=== PATIENT | male | born 1940 | race Caucasian/White ===

== ENCOUNTER 2016-11-27 08:20 | Outpatient (CLI) | payer MEDICARE, BC ==
[2016-11-27 09:01] LABS: Hemoglobin A1c 7.2 % (4.0-6.0)
[2016-11-27 09:34] LABS: ALT (SGPT) 29 U/L (0-55); AST (SGOT) 24 U/L (5-34); Albumin 4.2 g/dL (3.4-4.8); Alkaline Phosphatase 65 U/L (40-150); Anion Gap 12 mmol/L (10-20); BUN (Urea Nitrogen) 21 mg/dL (8.4-25.7); Bilirubin, Total 0.8 mg/dL (0.2-1.2); Calc. Creatinine Clearance 0 mL/min (70-130); Calcium 9.3 mg/dL (7.8-10.44); Carbon Dioxide 28 mmol/L (23-31); Chloride 109 mmol/L (98-107); Estimated GFR-MDRD 53; Globulin 3.2 g/dL (2.4-3.5); Glucose 207 mg/dL (83-110); Potassium 4.9 mmol/L (3.5-5.1); Protein, Total 7.4 g/dL (5.8-8.1); Sodium 144 mmol/L (136-145)
== END 2016-11-27 08:21 | disposition home or self-care (01) ==
LOC: BURLAB 08:20
PROVIDERS: ATTEND Internal Medicine Endocrinology, Diabetes & Metabolism
DX: E78.5 Hyperlipidemia, unspecified (principal); E11.51 Type 2 diabetes mellitus with diabetic peripheral angiopathy without gangrene; I10 Essential (primary) hypertension
CPT/HCPCS: 36415; 80053; 83036

== ENCOUNTER 2017-02-20 08:37 | Outpatient (CLI) | payer MEDICARE, BC ==
[2017-02-20 08:51] LABS: #Eosinphils 0.1 thou/uL (0.0-0.7); #Lymphocytes 1.5 thou/uL (1.20-3.40); #Monocytes 0.5 thou/uL (0.11-0.59); #Neutrophils 3.6 thou/uL (1.40-6.50); %Basophils 0.6 % (0.0-1.0); %Eosinophils 2.5 % (0.0-10.0); %Lymphocytes 26.4 % (21.0-51.0); %Monocytes 8.6 % (0.0-10.0); %Neutrophils 61.9 % (42.0-75.0); Hemoglobin 14.4 g/dL (14.0-18.0); Mean Corpuscular HGB CONC 34.8 g/dL (32.0-36.0); Mean Corpuscular Hemoglobin 32.5 pg (27.0-31.0); Mean Corpuscular Volume 93.2 fl (80.0-94.0); Mean Platelet Volume 8.2 fL (7.4-10.4); Platelet Count 176 thou/uL (130-400); RBC Distribution Width 12.9 % (11.5-14.5); Red Blood Cell (RBC) Count 4.44 mill/uL (4.70-6.10); White Blood Cell (WBC) Count 5.8 thou/uL (4.8-10.8)
[2017-02-20 09:13] LABS: Hemoglobin A1c 7.9 % (4.0-6.0)
[2017-02-20 09:22] LABS: ALT (SGPT) 34 U/L (8-55); AST (SGOT) 24 U/L (5-34); Albumin 4.1 g/dL (3.4-4.8); Alkaline Phosphatase 56 U/L (40-150); Anion Gap 15 mmol/L (10-20); BUN (Urea Nitrogen) 19 mg/dL (8.4-25.7); Bilirubin, Total 0.9 mg/dL (0.2-1.2); Calc. Creatinine Clearance 0 mL/min (70-130); Calcium 9.2 mg/dL (7.8-10.44); Carbon Dioxide 25 mmol/L (23-31); Cardiac Risk 4.2 (Less than 4.5); Chloride 108 mmol/L (98-107); Cholesterol 146 mg/dl (< 200 Desired); Estimated GFR-MDRD 58; Glucose 146 mg/dL (83-110); HDL Cholesterol 35 mg/dL (>60 Neg Risk); LDL Cholesterol, Calculated 82 mg/dL; Potassium 4.5 mmol/L (3.5-5.1); Protein, Total 7.1 g/dL (5.8-8.1); Sodium 143 mmol/L (136-145); Triglycerides 143 mg/dL (Less than 150)
== END 2017-02-20 08:38 | disposition home or self-care (01) ==
LOC: BURLAB 08:37
PROVIDERS: ATTEND Internal Medicine Endocrinology, Diabetes & Metabolism
DX: E11.51 Type 2 diabetes mellitus with diabetic peripheral angiopathy without gangrene (principal); I10 Essential (primary) hypertension; E78.5 Hyperlipidemia, unspecified; Z79.899 Other long term (current) drug therapy
CPT/HCPCS: 36415; 80053; 80061; 83036; 85025

== ENCOUNTER 2017-05-26 08:36 | Outpatient (CLI) | payer MEDICARE, BC ==
[2017-05-26 09:08] LABS: Hemoglobin A1c 9.6 % (4.0-6.0)
[2017-05-26 10:08] LABS: ALT (SGPT) 33 U/L (8-55); AST (SGOT) 22 U/L (5-34); Albumin 4.1 g/dL (3.4-4.8); Alkaline Phosphatase 65 U/L (40-150); Anion Gap 13 mmol/L (10-20); BUN (Urea Nitrogen) 20 mg/dL (8.4-25.7); Bilirubin, Total 0.6 mg/dL (0.2-1.2); Calc. Creatinine Clearance 0 mL/min (70-130); Carbon Dioxide 27 mmol/L (23-31); Chloride 105 mmol/L (98-107); Estimated GFR-MDRD 52; Globulin 3.4 g/dL (2.4-3.5); Glucose 327 mg/dL (83-110); Potassium 4.5 mmol/L (3.5-5.1); Protein, Total 7.5 g/dL (5.8-8.1); Sodium 140 mmol/L (136-145)
[2017-05-26 17:22] LABS: Creatinine, Urine 155.98 mg/dL (63-166); Microalbumin Urine 4.9 mg/dL (0.5-50.0); Microalbumin/Creat Ratio 31.4 mg/g (Less than 30)
== END 2017-05-26 08:37 | disposition home or self-care (01) ==
LOC: BURLAB 08:36
PROVIDERS: ATTEND Internal Medicine Endocrinology, Diabetes & Metabolism
DX: E11.00 Type 2 diabetes mellitus with hyperosmolarity without nonketotic hyperglycemic-hyperosmolar coma (NKHHC) (principal); E78.5 Hyperlipidemia, unspecified; I10 Essential (primary) hypertension; Z79.899 Other long term (current) drug therapy
CPT/HCPCS: 36415; 80053; 82043; 83036; 84443

== ENCOUNTER 2025-07-01 09:43 | Observation (INO) | payer MEDICARE ==
[2025-07-01 10:34] LABS: #Basophils 0.1 thou/uL (0.0-0.2); #Eosinophils 0.1 thou/uL (0.0-0.7); #Lymphocytes 1.9 thou/uL (1.20-3.40); #Monocytes 0.7 thou/uL (0.11-0.59); #Neutrophils 7.3 thou/uL (1.40-6.50); %Basophils 1.4 % (0.0-1.0); %Eosinophils 1.1 % (0.0-10.0); %Lymphocytes 18.9 % (21.0-51.0); %Monocytes 6.9 % (0.0-10.0); %Neutrophils 71.8 % (42.0-75.0); ALT (SGPT) 17 U/L (Less than 45); AST (SGOT) 21 U/L (11-34); Albumin 4.1 g/dL (3.1-4.5); Alkaline Phosphatase 62 U/L (40-110); Anion Gap 19 mmol/L (10-20); BUN (Urea Nitrogen) 29 mg/dL (8.4-25.7); Bilirubin, Total 0.9 mg/dL (0.3-1.2); Calc. Creatinine Clearance 0 mL/min (70-130); Calcium 9.9 mg/dL (7.8-10.44); Carbon Dioxide 14 mmol/L (23-31); Chloride 106 mmol/L (98-107); Globulin 3.8 g/dL (2.4-3.5); Glucose 239 mg/dL (83-110); Hematocrit 38.5 % (42.0-52.0); Hemoglobin 14.1 g/dL (14.0-18.0); Lipase 27 U/L (8-78); Magnesium 1.9 mg/dL (1.6-2.6); Mean Corpuscular Hemoglobin 30.0 pg (27.0-31.0); Mean Corpuscular Volume 81.9 fl (78.0-98.0); Platelet Count 256 10x3/uL (130-400); Potassium 4.8 mmol/L (3.5-5.1); Red Blood Cell (RBC) Count 4.70 mill/uL (4.70-6.10); Sodium 134 mmol/L (136-145); White Blood Cell (WBC) Count 10.2 10x3/uL (4.8-10.8)
[2025-07-01 10:37] LABS: Troponin I 0.031 ng/mL (< 0.028)
[2025-07-01] MEDS ORDERED: Acetaminophen 325 MG TAB PO PRN (14:15)
[2025-07-01 14:37] LABS: Troponin I 0.026 ng/mL (< 0.028)
[2025-07-01] MEDS: Lidocaine Viscous Sol 2% 15 ml UD Cup ONE (15:16)
[2025-07-01] MEDS: Mag-Al Plus 1200/1200/120 MG (30 mL) UDCUP ONE (15:16)
[2025-07-01] MEDS ORDERED: Glucagon 1 MG/ML KIT IM PRN (15:38)
[2025-07-01] MEDS ORDERED: Dextrose 50% Abboject 50 ML SYRINGE SLOW IVP PRN (15:38)
[2025-07-02 05:03] LABS: Anion Gap 14 mmol/L (10-20); BUN (Urea Nitrogen) 26 mg/dL (8.4-25.7); Calc. Creatinine Clearance 49 mL/min (70-130); Calcium 9.0 mg/dL (7.8-10.44); Carbon Dioxide 18 mmol/L (23-31); Chloride 112 mmol/L (98-107); Glucose 92 mg/dL (83-110); Potassium 4.3 mmol/L (3.5-5.1); Sodium 140 mmol/L (136-145)
[2025-07-02 05:07] LABS: Hematocrit 33.3 % (42.0-52.0); Hemoglobin 12.2 g/dL (14.0-18.0); MDiff Complete? YES; Mean Corpuscular Hemoglobin 30.3 pg (27.0-31.0); Mean Corpuscular Volume 82.6 fl (78.0-98.0); Platelet Adequacy Comment Appears Adequate; Platelet Count 169 10x3/uL (130-400); Red Blood Cell (RBC) Count 4.03 mill/uL (4.70-6.10); White Blood Cell (WBC) Count 5.7 10x3/uL (4.8-10.8)
[2025-07-02 06:08] VITALS: BMI 24.9
[2025-07-02] MEDS: Calcium Carbonate 500 MG ChewTAB PO PRN (09:12)
[2025-07-02] MEDS: Lisinopril 5 MG TAB PO SCH (09:14)
[2025-07-02] MEDS: Magnesium Oxide 400 MG TAB PO SCH (09:14)
[2025-07-02] MEDS: Aspirin 81 mg Enteric Coated Tablet PO SCH (09:14)
[2025-07-02] MEDS: Rosuvastatin 10 MG TAB PO SCH (09:14)
[2025-07-02] MEDS: Famotidine 20 MG TAB PO SCH ×2 (09:55→20:36)
[2025-07-02] MEDS: Pantoprazole 40 MG DR.TAB PO SCH (09:55)
[2025-07-02] MEDS ORDERED: Iopamidol 370 76% 100 ML VIAL ONE (11:07)
[2025-07-02 20:50] VITALS: BP 163/74; TEMP 98.7
[2025-07-02] MEDS ORDERED: Famotidine 20 MG TAB PO SCH (21:00)
[2025-07-03 05:51] LABS: Campy jejuni + coli by PCR Negative (Negative); STEC Shiga Toxin 1+2 Negative (Negative); Salmonella spp. by PCR Negative (Negative); Shigella spp + EIEC by PCR Negative (Negative)
[2025-07-03] MEDS ORDERED: Pantoprazole 40 MG DR.TAB PO SCH (09:00)
== END 2025-07-02 21:30 | disposition short-term general hospital (02) ==
LOC: BURERS 09:43 → BURMED 12:55
PROVIDERS: ADMIT Family Medicine; ATTEND Nurse Practitioner
DX: N17.9 Acute kidney failure, unspecified (principal); I25.10 Atherosclerotic heart disease of native coronary artery without angina pectoris; E11.9 Type 2 diabetes mellitus without complications; I10 Essential (primary) hypertension; E78.5 Hyperlipidemia, unspecified; K21.9 Gastro-esophageal reflux disease without esophagitis; Z79.899 Other long term (current) drug therapy; Z79.84 Long term (current) use of oral hypoglycemic drugs; Z79.82 Long term (current) use of aspirin
CPT/HCPCS: 36415; 36416; 74177; 80048; 80053; 83605; 83690; 83735; 84484; 85025; 87505; 93005; 96360; G0378; J7120; Q0162; Q0169; Q9967